=== PATIENT | female | born 1995 | race Hispanic/Latino ===

== ENCOUNTER 2018-05-26 17:36 | Emergency (ER) | payer OTHER ==
[2018-05-26 18:35] LABS: Urine Blood NEGATIVE (NEG); Urine Glucose NEGATIVE (NEG); Urine Protein NEGATIVE (NEG)
[2018-05-26 18:46] LABS: Absolute Lymphocytes (CBC) 1.6 K/uL (0.7-4.9); Absolute Monocytes 0.6 K/uL (0.1-1.3); Absolute Neutrophil 9.3 K/uL (1.8-8.0); Basophils % 0.4 % (0-1.3); Eosinophils % 0.5 % (0-4.4); Hematocrit 39.6 % (36.0-45.0); Lymphocytes % 14.1 % (15.3-44.8); MCH 32.1 pg (27.0-35.0); MCV 93.7 fL (80-100); MPV 9.7 fL (7.6-11.3); Monocytes % 5.1 % (3.3-12.3); RBC Red Blood Cell Count 4.23 M/uL (3.86-4.86)
[2018-05-26 19:19] LABS: BUN Blood Urea Nitrogen 8 mg/dL (7-18); Bicarbonate 25 mmol/L (21-32); Glucose Level 93 mg/dL (74-106); HCG, Quantitative 76865 mIU/mL (1-3); Potassium 3.9 mmol/L (3.5-5.1); Sodium Level 138 mmol/L (136-145)
--- NOTE | 2018-05-26 19:34 | RAD REPORT ---
EXAM DESCRIPTION: US - Transvaginal OB - 05/26/2018 7:27 pm CLINICAL HISTORY: , vaginal bleeding COMPARISON: None. FINDINGS: Single intrauterine gestation is identified. Bieber-rump length measurement corresponds to a 10 week 3 day age. Heart rate is 167 BPM. Yolk sac is still visible. No intrauterine mass or hemato ma identifiable. Both ovaries are identifiable. No dominant solid or cystic ovarian or adnexal finding. Doppler evalua tion shows a normal blood flow within the ovarian stroma. No adnexal mass to suspect ectopic pregnanc y. No blood or fluid in the cul-de-sac. IMPRESSION: Single 10 week 3 day IUP with normal heart rate. No intrauterine mass or hematoma. No suspicious ovarian or adnexal finding.
--- NOTE | 2018-05-26 19:41 | ER ---
Nurse's Notes [facility] Name: Ryann Denney Age: 23 yrs Sex: Female : 1995 Arrival Date: 05/26/2018 Time: 17:42 Bed 25 Private MD: Zane Post Diagnosis: Threatened Presentation: 05/26 17:53 Presenting complaint: Patient states: " I took a test over a month ago and it ph was positive, I went to the OB 2 about 2 weeks ago and they did an US and said that the uterus was empty. I took another test the other day and it was positive too, and I'm still having symptoms like I'm ." Pt reports nausea and bloating, also reports light vaginal bleeding this morning. Transition of care: patient was not received from another setting of care. Onset of symptoms was May 26, 2018. Risk Assessment: Do you want to hurt yourself or someone else? Patient reports no desire to harm self or others. Initial Sepsis Screen: Does the patient meet any 2 criteria? No. Patient's initial sepsis screen is negative. Does the patient have a suspected source of infection? No. Patient's initial sepsis screen is negative. Care prior to arrival: None. 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 - Social history:: Smoking status: Patient/guardian denies using tobacco. - Ebola Screening: : Patient negative for fever greater than or equal to 101.5 degrees Fahrenheit, and additional compatible Ebola Virus Disease symptoms Patient denies exposure to infectious person Patient denies travel to an Ebola-affected area in the 21 days before illness onset. Screenin:40 Abuse screen: Denies threats or abuse. Denies injuries from another. Nutritional aj1 screening: No deficits noted. Tuberculosis screening: No symptoms or risk factors identified. 20:51 Fall Risk None identified. rv Assessment: 18:40 General: Appears in no apparent distress. comfortable, Behavior is calm, cooperative, aj1 appropriate for age. Pain: Complains of pain in suprapubic area Pain does not radiate. Quality of pain is described as crampy. Neuro: Level of Consciousness is awake, alert, obeys commands. Cardiovascular: Patient's skin is warm and dry. Respiratory: Airway is patent Respiratory effort is even, unlabored, Respiratory pattern is regular, symmetrical. GI: No signs and/or symptoms were reported involving the gastrointestinal system. : Urine is clear, Reports vaginal bleeding that is light flow. EENT: No signs and/or symptoms were reported regarding the EENT system. Derm: No signs and/or symptoms reported regarding the dermatologic system. Skin is pink, warm \\T\\ dry. normal. Musculoskeletal: No signs and/or symptoms reported regarding the musculoskeletal system. Circulation, motion, and sensation intact. 19:04 Reassessment: Patient transported to US via wheelchair. aj1 Vital Signs: 17:56 BP 129 / 89; Pulse 77; Resp 18; Temp 98.4; Pulse Ox 97% on R/A; Weight 71.67 kg; Height ph 5 ft. 6 in. (167.64 cm); Pain 2/10; 17:56 Body Mass Index 25.50 (71.67 kg, 167.64 cm) ph ED Course: 17:42 Patient arrived in ED. mr 17:42 Zane Post MD is Private Physician. mr 17:56 Triage completed. ph 17:58 Arm band placed on. ph 18:00 Guy Todd PA is PHCP. jr8 18:00 Isaac Granda MD is Attending Physician. jr8 18:11 Angella Lange, NICOLA is Primary Nurse. aj1 18:40 Patient has correct armband on for positive identification. Bed in low position. Call aj1 light in reach. Side rails up X 1. 18:40 No provider procedures requiring assistance completed. Initial lab(s) drawn, by me, aj1 sent to lab. Inserted saline lock: 22 gauge in right antecubital area, using aseptic technique. Blood collected. 19:30 US Transvaginal Ob In Process Unspecified. EDMS 20:51 IV discontinued, bleeding controlled, No redness/swelling at site. Pressure dressing rv applied. Administered Medications: No medications were administered Outcome: 19:41 Discharge ordered by MD. quintero 20:50 Discharged to home ambulatory. rv 20:50 Condition: good 20:50 Discharge instructions given to patient, Instructed on discharge instructions, follow up and referral plans. Demonstrated understanding of instructions, follow-up care. 20:51 Patient left the ED. rv Signatures: Dispatcher [employer] EDAngella Alcala RN RN aj1 Cathy Cruz mr Guy Todd PA PA jr8 Taylor Waddell RN RN Raúl Negron RN RN rv
--- NOTE | 2018-05-26 19:41 | EDPHYS ---
Physician Documentation [facility] Name: Ryann Denney Age: 23 yrs Sex: Female : 1995 Arrival Date: 05/26/2018 Time: 17:42 Bed 25 Private MD: Zane Post ED Physician Isaac Granda HPI: 05/26 19:29 This 23 yrs old Female presents to ER via Ambulatory with complaints of jr8 Vaginal Bleeding. 19:29 The patient presents with vaginal bleeding that is spotting. Onset: The jr8 symptoms/episode began/occurred acutely. Modifying factors: The symptoms are alleviated by nothing, the symptoms are aggravated by nothing. Associated signs and symptoms: Pertinent positives: cramping. Severity of symptoms: At their worst the symptoms were mild, in the emergency department the symptoms are unchanged. The patient has experienced a previous episode. The patient has not recently seen a physician. Patient stated that by her last LMP she is approximately 11 weeks . Stated that she had spotting a few weeks ago and did not see intrauterine gestation via US at that time. Spotting again with cramping. Came back for second evaluation. Had positive test at home. 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 - Social history:: Smoking status: Patient/guardian denies using tobacco. - Ebola Screening: : Patient negative for fever greater than or equal to 101.5 degrees Fahrenheit, and additional compatible Ebola Virus Disease symptoms Patient denies exposure to infectious person Patient denies travel to an Ebola-affected area in the 21 days before illness onset. ROS: 19:29 Eyes: Negative for injury, pain, redness, and discharge, ENT: Negative for injury, jr8 pain, and discharge, Neck: Negative for injury, pain, and swelling, Cardiovascular: Negative for chest pain, palpitations, and edema, Respiratory: Negative for shortness of breath, cough, wheezing, and pleuritic chest pain, Abdomen/GI: Negative for abdominal pain, nausea, vomiting, diarrhea, and constipation, Back: Negative for injury and pain, MS/Extremity: Negative for injury and deformity, Skin: Negative for injury, rash, and discoloration, Neuro: Negative for headache, weakness, numbness, tingling, and seizure. 19:29 : Positive for pelvic pain, vaginal bleeding. Exam: 19:29 Eyes: Pupils equal round and reactive to light, extra-ocular motions intact. Lids and jr8 lashes normal. Conjunctiva and sclera are non-icteric and not injected. Cornea within normal limits. Periorbital areas with no swelling, redness, or edema. ENT: Nares patent. No nasal discharge, no septal abnormalities noted. Tympanic membranes are normal and external auditory canals are clear. Oropharynx with no redness, swelling, or masses, exudates, or evidence of obstruction, uvula midline. Mucous membranes moist. Neck: Trachea midline, no thyromegaly or masses palpated, and no cervical lymphadenopathy. Supple, full range of motion without nuchal rigidity, or vertebral point tenderness. No Meningismus. Cardiovascular: Regular rate and rhythm with a normal S1 and S2. No gallops, murmurs, or rubs. Normal PMI, no JVD. No pulse deficits. Respiratory: Lungs have equal breath sounds bilaterally, clear to auscultation and percussion. No rales, rhonchi or wheezes noted. No increased work of breathing, no retractions or nasal flaring. Abdomen/GI: Soft, non-tender, with normal bowel sounds. No distension or tympany. No guarding or rebound. No evidence of tenderness throughout. Back: No spinal tenderness. No costovertebral tenderness. Full range of motion. Skin: Warm, dry with normal turgor. Normal color with no rashes, no lesions, and no evidence of cellulitis. MS/ Extremity: Pulses equal, no cyanosis. Neurovascular intact. Full, normal range of motion. Neuro: Awake and alert, GCS 15, oriented to person, place, time, and situation. Cranial nerves II-XII grossly intact. Motor strength 5/5 in all extremities. Sensory grossly intact. Cerebellar exam normal. Normal gait. Vital Signs: 17:56 BP 129 / 89; Pulse 77; Resp 18; Temp 98.4; Pulse Ox 97% on R/A; Weight 71.67 kg; Height ph 5 ft. 6 in. (167.64 cm); Pain 2/10; 17:56 Body Mass Index 25.50 (71.67 kg, 167.64 cm) ph MDM: 18:01 Patient medically screened. 19:29 Data reviewed: vital signs, nurses notes, lab test result(s), radiologic studies, 8 ultrasound, and as a result, I will discharge patient. Data interpreted: Pulse oximetry: on room air is 97 %. Interpretation: normal. Counseling: I had a detailed discussion with the patient and/or guardian regarding: the historical points, exam findings, and any diagnostic results supporting the discharge/admit diagnosis, lab results, radiology results, the need for outpatient follow up, an OB/Gyne specialist, to return to the emergency department if symptoms worsen or persist or if there are any questions or concerns that arise at home. 05/26 18:18 Order name: CBC with Diff; Complete Time: 19:20 [email or web address] 05/26 18:18 Order name: Basic Metabolic Panel; Complete Time: 19:20 05/26 18:18 Order name: HCG-Quantitative; Complete Time: 19:20 [email or web address] 05/26 18:27 Order name: Urine Dipstick--Ancillary (enter results); Complete Time: 18:53 05/26 18:27 Order name: Urine --Ancillary (enter results); Complete Time: 18:53 05/26 19:34 Order name: Abo/rh Typing; Complete Time: 20:41 [email or web address] 05/26 18:18 Order name: IV; Complete Time: 19:00 [email or web address] 05/26 18:18 Order name: Urine Test (obtain specimen); Complete Time: 19:00 [email or web address] 05/26 18:18 Order name: Urine Dipstick-Ancillary (obtain specimen); Complete Time: 19:00 [email or web address] 05/26 18:53 Order name: US Transvaginal Ob; Complete Time: 19:40 Administered Medications: No medications were administered Disposition: 19:29 Chart complete. Chart complete. 05/27 07:17 Co-signature as Attending Physician, Isaac Granda MD I agree with the assessment and fadi plan of care. Disposition: 05/26/18 19:41 Discharged to Home. Impression: Threatened . - Condition is Stable. - Discharge Instructions: Threatened Miscarriage, Vaginal Bleeding During , First Trimester, Pelvic Rest. - Medication Reconciliation Form, Thank You Letter, Antibiotic Education, Prescription Opioid Use form. - Follow up: Private Physician; When: 2 - 3 days; Reason: Recheck today's complaints, Continuance of care, Re-evaluation by your physician. - Problem is new. - Symptoms have improved. Signatures: Dispatcher [employer] EDAngella Alcala RN RN aj1 Isaac Granda MD MD cha Roszak, Josh, PA PA jr8 Taylor Waddell RN RN Raúl Reed RN RN rv Corrections: (The following items were deleted from the chart) 05/26 20:51 19:41 05/26/2018 19:41 Discharged to Home. Impression: Threatened . Condition rv is Stable. Forms are Medication Reconciliation Form, Thank You Letter, Antibiotic Education, Prescription Opioid Use. Follow up: Private Physician; When: 2 - 3 days; Reason: Recheck today's complaints, Continuance of care, Re-evaluation by your physician. Problem is new. Symptoms have improved. jr8
[2018-05-26 22:45] VITALS: BP 129/89; TEMP 98.4; O2SAT 97
== END 2018-05-26 20:51 | disposition home or self-care (01) ==
LOC: ER 17:36
DX: O20.0 Threatened abortion (principal); Z3A.11 11 weeks gestation of pregnancy
CPT/HCPCS: 36415; 76817; 80048; 81003; 81025; 84702; 85025; 86900; 86901; 99283

== ENCOUNTER 2018-12-11 05:08 | Inpatient (IN) | payer OTHER ==
[2018-12-10 17:38] LABS: RPR Titer ND
[2018-12-10 17:43] LABS: Urine Appearance CLEAR; Urine Bilirubin NEGATIVE (NEG); Urine Blood NEGATIVE (NEG); Urine Color YELLOW; Urine Glucose NEGATIVE (NEG); Urine Protein NEGATIVE (NEG); Urine Specific Gravity 1.015 (1.005-1.030); Urine Urobilinogen 0.2 mg/dL (0.2-1.0)
[2018-12-10 17:47] LABS: Absolute Lymphocytes (CBC) 1.7 K/uL (0.7-4.9); Absolute Monocytes 0.7 K/uL (0.1-1.3); Absolute Neutrophil 6.4 K/uL (1.8-8.0); Basophils % 0.3 % (0-1.3); Eosinophils % 0.4 % (0-4.4); Hematocrit 35.4 % (36.0-45.0); Lymphocytes % 19.3 % (15.3-44.8); MPV 10.4 fL (7.6-11.3); Monocytes % 7.5 % (3.3-12.3); RBC Red Blood Cell Count 4.11 M/uL (3.86-4.86)
[2018-12-10 17:53] LABS: Protime INR 0.89
[2018-12-10 18:40] LABS: Urine Bacteria NONE SEEN /HPF (<20); Urine RBC <5 /HPF (NONE SEEN)
[2018-12-10 18:41] LABS: Urine Culture Reflex Order NOT NEEDED
[2018-12-10 21:58] LABS: RPR (Rapid Plasma Reagin) NON-REACT (NON-REACT)
[2018-12-11] MEDS ORDERED: Ringers Lactate 1,000 ML IV PRN (05:11)
[2018-12-11] MEDS ORDERED: NA CIT/CITRIC AC 30 ML ORAL UDC PO ONE (05:13)
[2018-12-11] MEDS ORDERED: FAMOTIDINE 20 MG/2 ML VIAL IV ONE (05:13)
[2018-12-11 05:52] VITALS: BMI 31.8
[2018-12-11] MEDS ORDERED: METOCLOPRAMIDE 10 MG/2mL INJ IV SCH (06:00)
[2018-12-11] MEDS ORDERED: CEFAZOLIN 2 GM in NA CHLORIDE 0.9% 100 ML IVPB SCH (06:00)
[2018-12-11] MEDS ORDERED: Ringers Lactate 1,000 ML IV SCH (06:00)
[2018-12-11] MEDS ORDERED: METHYLERGONOVINE 0.2MG/ML AMP IM ONE (06:18)
[2018-12-11] MEDS ORDERED: CARBOPROST TROME 250 MCG/ML IM ONE (06:18)
[2018-12-11] MEDS ORDERED: CEFAZOLIN/SWI 2gm 2 GM/20 ML SYR ONE (06:53)
[2018-12-11] MEDS ORDERED: EPHEDRINE SULF 50 MG/ML VIAL ONE (07:20)
[2018-12-11] MEDS ORDERED: MORPHINE SULFATE/PF 1 MG/ML (10 ML AMP) ONE (07:20)
[2018-12-11] MEDS ORDERED: OXYTOCIN 10 UNIT/ML ML IV ONE ×3 (07:21→08:01)
[2018-12-11] MEDS ORDERED: GLYCOPYRROLATE 0.2 MG/ML SYR ONE (07:21)
[2018-12-11] MEDS ORDERED: NS 0.9% VIAL 10 ML ONE (07:21)
[2018-12-11] MEDS ORDERED: ONDANSETRON 4 MG/2 ML VIAL ONE (07:23)
[2018-12-11] MEDS ORDERED: Phenylephrine HCl 10 MG/ML 1 ML VIAL ONE (07:23)
[2018-12-11] MEDS ORDERED: MIDAZOLAM HCL 2 MG/2 ML INJ ONE (07:55)
[2018-12-11] MEDS ORDERED: INFLUENZA VACCINE (for 3y+) 0.5 ML DOSE IMVAC ONE (08:00)
--- NOTE | 2018-12-11 08:28 | PREOPHP ---
Date of Admission: 12/11/2018 This is a 23-year-old 4, para 1, 1 miscarriage, 1 now at 39 weeks. for r epeat section. Possible tubal ligation. Infection, blood loss, anesthetic complications, i njury to bladder, bowel, ureter, postoperative complications, clots in legs, pneumonia discussed. Th e patient knows fully well this does not constitute all possible problems that could occur during or following surgery. Knows that if we do perform the tubal, she still has a chance of getting approximately . Difficulty in tubal reversal, tubal ectopic , also discussed. Family History: Shows paternal grandfather with hypertension. Also heart attacks, also diabetes. N o other significant family history. Past Surgical History: The patient has had a , broken arms, tonsils removed. Finger tip am putation, Chlamydia in 2017 was treated. Allergies: NO ALLERGIES. Medicines Prior To Admission: vitamins and iron. Social History: Does not smoke. Physical Examination: HEENT: Clear. Pupils equal, round, and reactive to light and accommodation. Conjunctivae well perf used. No oral, lingual, or buccal lesions. Chest: Clear. Lungs: Clear. Heart: Without murmurs, thrills, heaves, or rubs. Abdomen: Baby is vertex. Term size is in the 8 pounds range or better. Extremities: Clear without edema, cyanosis, or clubbing. : She is 1 to 1.5 cm, 50% effaced, vertex, well applied. Assessment/plan: We will proceed with repeat section, possible tubal ligation depending upo n lower uterine segment. The patient knows that I cannot guarantee that I can perform the procedure in which case we will talk about options that would occur of course in period. SIGIFREDO/CHALINO Voice ID: [id number]
[2018-12-11] MEDS ORDERED: ACETAMINOPHEN 500 MG TAB PO PRN ×2 (08:30)
[2018-12-11] MEDS ORDERED: KETOROLAC 30 MG/ML INJ IM PRN (08:30)
[2018-12-11] MEDS ORDERED: ONDANSETRON 4 MG (ODT) TAB PO PRN (08:30)
[2018-12-11] MEDS ORDERED: ONDANSETRON 4 MG/2 ML VIAL IV PRN (08:30)
[2018-12-11] MEDS ORDERED: BISACODYL 10 MG RECTAL SUPP RECT PRN (08:30)
[2018-12-11] MEDS ORDERED: CEFAZOLIN/SWI 1gm 1 GM/10 ML SYR IV SCH (08:30)
[2018-12-11] MEDS ORDERED: Oxycodone HCl/Acetaminophen 1 TAB TAB PO PRN (08:30)
[2018-12-11] MEDS ORDERED: KETOROLAC 30 MG/ML INJ IV PRN (08:30)
[2018-12-11] MEDS ORDERED: OXYTOCIN/LR 20 UNIT/1,000 ML BAG IV SCH (09:00)
[2018-12-11] MEDS ORDERED: D5LR 1,000 ML with OXYTOCIN 20 UNIT IV SCH ×2 (09:00)
[2018-12-11] MEDS: DIPHENHYDRAMINE 25 MG TAB/CAP PO PRN ×3 (09:48→22:06)
[2018-12-11] MEDS ORDERED: Ringers Lactate 3,000 ML IV ONE (13:20)
--- NOTE | 2018-12-11 15:40 | OP ---
Surgeon: Stone Hanson MD Indications: This is a 23-year-old female with repeat section. Infection, blood loss, anes thetic complications, injury to bladder, bowel, or ureter, all discussed with the patient prior to ad mission. This is her fourth . She has had 1 termination and 1 miscarriage. The patient is also requesting tubal sterilization. We discussed with her that if the lower uterine segment would withstand, we could proceed on with the tubal and she has signed the permit. Description Of Procedure: After prepping and draping, time-out was performed. Pfannenstiel incision was created. The incision was carried to the fascia. The fascia was incised and incision carried t ransversely bilaterally. Anterior fascia plane was developed with both blunt and sharp dissection. The underlying rectus muscle was . There was noted to be significant anterior scarring with thick adhesions that required lysis before the lower uterine segment could be exposed. The lower ut erine segment was very thin. I decided to go above the lower uterine segment as when we removed the adhesions, there was raw surfaces on the uterus, and I decided to go a little bit higher than I mario lly would have to include the raw surfaces, so we conclude that in our suturing later. Low transvers e uterine incision was created. A 9-pound 5-ounce boy was delivered. Kiwi suction was necessary to elevate the head. Loose nuchal cord x1. Apgars 9 at 1 minute. Cord blood was obtained. The placen ta was removed manually, and the uterus was exteriorized. Significant hypotonus was encountered. A 0.2 mg of Methergine IM, as well as 10 units of Pitocin into the myometrium were administered, as wel l as IV drip Pitocin. Estimated blood loss during the procedure [id number] cc. After cervical os was dilated, uterus was closed with a running locked stitch of 1 chromic followed by imbricating stitch of 1 chromic. Multiple raw surfaces where the adhesions had been encountered were fulgurated. Bilat eral tubal ligation was performed, both tubes being kinked in the midportion, triply tied with 3-0 pl ain and the segment of tube was removed. The tubal lumen, which were exposed, were fulgurated. Furt her examination of the suture line showed no further bleeding. The gutters clear of clot and blood. Uterus was replaced in the peritoneal cavity. Ligation sites were checked, noted to be intact witho ut bleeding. The anterior surface of the uterus again very raw and irritated, but no further bleedin g. Muscles were closed with 0 Vicryl interrupted sutures x3. Fascia was closed with 1 Vicryl runnin g from either angle to the midline. Subcutaneous tissue closed with 3-0 plain. Absorbable mayco p laced and then metal mayco. The patient had been given 2 g of Ancef. Tolerated all procedures wel l. Transferred back to her room in good condition. Final Diagnoses: Term intrauterine . Repeat section. Spinal block anesthesia. T ubal ligations. Severe anterior scarring. Thin lower uterine segment. Moderate uterine hypotonus. SIGIFREDO/CHALINO Voice ID: [id number] Report ID: [id number]
[2018-12-12] MEDS: Oxycodone HCl/Acetaminophen 1 TAB TAB PO PRN ×5 (00:26→23:25)
[2018-12-12] MEDS ORDERED: Ringers Lactate 1,000 ML IV ONE (01:45)
[2018-12-12] MEDS: MAGNESIUM HYDROXIDE 8% 30 ML PO PRN ×2 (08:30→18:23)
[2018-12-13] MEDS: Oxycodone HCl/Acetaminophen 1 TAB TAB PO PRN ×2 (03:18→08:35)
[2018-12-13] MEDS ORDERED: IBUPROFEN 200 MG TAB PO PRN (07:54)
[2018-12-13] MEDS ORDERED: Tdap (Diph,Pertuss(Acell),Tet Vac) 0.5 ML SYR IMVAC ONE (09:00)
--- NOTE | 2018-12-13 09:21 | DS ---
Hospital Course: Ryann Denney underwent repeat section low transverse cervical, spinal b lock anesthesia, tubal sterilization. At the time of surgery, significant anterior scarring was note d that required multiple before the lower uterine segment can be reached, and the lower ut erine segment itself was thin, and therefore, sterilization was performed. Postoperatively, the fouzia ent remains afebrile. She is ambulating, voiding. Lochia is normal. The patient experienced mild-t o-moderate hypotonus at the time of surgery. She is anemic at this point and knows she needs to cont inue vitamins and iron. Tdap has again been discussed as it has been several times during t he and suggested. She has requested Motrin for analgesia 800 mg 1 every 8 hours as needed. GI precautions given. She is to return to my office late this coming week for staple removal. To report any temperature elevation of 100 degrees or greater, severe pain, heavy bleeding, or any other type of abnormalities. No post spinal block problems. Final Diagnoses: Term intrauterine , repeat section, moderate uterine hypotonus, s evere anterior scarring, thin lower uterine segment, section, tubal sterilization performed. SIGIFREDO/CHALINO Voice ID: [id number] Report ID: [id number]
[2018-12-13 10:13] VITALS: BP 120/64; TEMP 99.1
--- NOTE | 2018-12-14 08:28 | PN ---
The patient has no complaints or problems this morning. Output is good. Vital signs are all stable. We will discontinue Messina and IV. Full postop talk given. She will call the office on Friday, amita carlson an appointment to come see me late next week. She knows that her blood count is slightly lower jorden n average at this point because of the uterine hypertonicity. This is fully discussed and the patimiguel rodriguez is encouraged to get on iron when she leaves the hospital for the next month or 2. She is having s ome pruritus, but otherwise no problems or complaints reported. If she continues progressing well, ying carlson will send her home tomorrow. Full discharge instructions given but we will go over those again nacho orrow. No post spinal block problems. SIGIFREDO/CHALINO Voice ID: [id number] Report ID: [id number]
[2018-12-16 04:37] LABS: HBsAG Nonreactive (Nonreactive)
== END 2018-12-13 12:10 | disposition home or self-care (01) | DRG 785 ==
LOC: 2ND-WC 05:08
PROVIDERS: ADMIT Specialist; ATTEND Specialist
PROC: 0U570ZZ Destruction of Bilateral Fallopian Tubes, Open Approach (ICD-10-PCS; 2018-12-11)
PROC: 10D00Z1 Extraction of Products of Conception, Low, Open Approach (ICD-10-PCS; principal; 2018-12-11 07:30)
DX: O34.211 Maternal care for low transverse scar from previous cesarean delivery (principal); N85.8 Other specified noninflammatory disorders of uterus; O69.81X0 Labor and delivery complicated by cord around neck, without compression, not applicable or unspecified; O34.29 Maternal care due to uterine scar from other previous surgery; O62.2 Other uterine inertia; Z3A.39 39 weeks gestation of pregnancy; Z37.0 Single live birth; Z23 Encounter for immunization
CPT/HCPCS: 36415; 81001; 85014; 85025; 85610; 85730; 86592; 86850; 86900; 86901; 87340; 88302; 88307; 90715; J0690; J2210; J2250; J2370; J2405; J2590; J2765

== ENCOUNTER 2019-12-24 20:30 | Emergency (ER) | payer OTHER ==
--- NOTE | 2019-12-24 21:00 | ER ---
Nurse's Notes [facility] Name: Ryann Denney Age: 24 yrs Sex: Female : 1995 Arrival Date: 12/24/2019 Time: 20:36 Bed 8 Private MD: Zane Post Diagnosis: Nasal Contusion Presentation: 12/23 20:42 Chief complaint: Patient states: Son head butted nose 2 weeks ago and again tonight. ca1 Obvious deformity noted. Denies difficulty breathing. Coronavirus screen: Patient denies fever greater than 100.4F, cough, shortness of breath, or difficulty breathing. Proceed with normal triage process. Ebola Screen: Patient negative for fever greater than or equal to 101.5 degrees Fahrenheit, and additional compatible Ebola Virus Disease symptoms Patient denies exposure to infectious person. Patient denies travel to an Ebola-affected area in the 21 days before illness onset. No symptoms or risks identified at this time. Initial Sepsis Screen: Does the patient meet any 2 criteria? No. Patient's initial sepsis screen is negative. Does the patient have a suspected source of infection? No. Patient's initial sepsis screen is negative. Risk Assessment: Do you want to hurt yourself or someone else? Patient reports no desire to harm self or others. Onset of symptoms was December 24, 2019. 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 - Social history:: Smoking status: Patient denies any tobacco usage or history of. Vital Signs: 20:42 BP 114 / 95; Pulse 106; Resp 17 S; Temp 97.6(TE); Pulse Ox 100% on R/A; Weight 73.03 ca1 kg; Height 5 ft. 7 in. (170.18 cm) (R); 20:42 Body Mass Index 25.22 (73.03 kg, 170.18 cm) ca1 ED Course: 20:36 Patient arrived in ED. mr 20:36 Zane Post MD is Private Physician. mr 20:39 [facility] 20:39 Isaac Granda MD is Attending Physician. [facility] 20:44 Triage completed. ca1 20:45 Arm band placed on right wrist. ca1 20:59 Noemí Horton MD is Referral Physician. [facility] 21:04 Mt Godinez, RN is Primary Nurse. sg Administered Medications: No medications were administered Outcome: :59 Discharge ordered by . [facility] 21:04 Patient left the ED. sg Signatures: Mt Godinez, RN RN Evan Mathew PA PA [facility] Anthony Marisol mr Charlee Rojo RN RN ca1
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
[2019-12-24 21:08] VITALS: BP 114/95; TEMP 97.6; O2SAT 100
== END 2019-12-24 21:04 | disposition home or self-care (01) ==
LOC: ER 20:30
DX: S00.33XA Contusion of nose, initial encounter (principal); X58.XXXA Exposure to other specified factors, initial encounter
CPT/HCPCS: 99281

== ENCOUNTER 2022-11-23 14:11 | Emergency (ER) | payer OTHER ==
--- OUTSIDE RECORDS SUMMARY | 2022-11-23 14:14 | XMS REPORT | Continuity of Care Document ---
:1995 Author Organization [facility] t Address [address] [place] [address] Care Team Providers Name Role Phone PATI WILLIAMSON Primary Care Physician Unavailable PATI WILLIAMSON Attending Clinician Unavailable Payers Payer Name Policy Type Policy Number Effective Date Expiration Date S jamari [id number] 2021 00:00:00 Problems This patient has no known problems. Allergies, Adverse Reactions, Alerts Allergy Allergy Status Severity Reaction(s) Onset Inactive Treating Comm ents Source Name Type Date Date Clinician NO KNOWN Drug Active [facility] ALLERGIE Class [facility] of [facility] Medications This patient has no known medications. Procedures This patient has no known procedures. Encounters Start End Encounter Admission Attending Care Care Encounter Source Date/Time Date/Time Type Type Clinicians Facility Department ID 2022-10-15 2022-10-15 Outpatient R [facility] [id number] [facility] 09:15:00 09:15:00 PATI luu o f [facility] Results This patient has no known results.
[2022-11-23] MEDS ORDERED: KETOROLAC 30 MG/ML INJ ONE (15:40)
--- NOTE | 2022-11-23 16:23 | RAD REPORT ---
EXAM DESCRIPTION: Shoulder Right 2 View - 11/23/2022 3:54 pm CLINICAL HISTORY: Pain COMPARISON: None. TECHNIQUE: Internal and external rotation views of the right shoulder were obtained. FINDINGS: There is no fracture or dislocation. AC joint is normal in appearance. No acute or suspici ous findings. IMPRESSION: No acute osseous abnormality of the right shoulder.
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
[2022-11-23 16:52] VITALS: TEMP 98.6; O2SAT 100
[2022-11-23 16:54] VITALS: BP 124/78
== END 2022-11-23 16:45 | disposition home or self-care (01) ==
LOC: ER 14:11
DX: M79.631 Pain in right forearm (principal); R29.91 Unspecified symptoms and signs involving the musculoskeletal system; M25.511 Pain in right shoulder; Z98.82 Breast implant status
CPT/HCPCS: 96372; 99283

== ENCOUNTER 2024-03-14 13:25 | Emergency (ER) | payer OTHER, SELFPAY ==
--- OUTSIDE RECORDS SUMMARY | 2024-03-14 13:35 | XMS REPORT | Continuity of Care Document ---
Author Name Unknown Address [address] [place] [address] [facility] thconnect Address [address] [place] [address] Care Team Providers [place] Name Role Phone PATI WILLIAMSON Primary Care Physician Unav ailable [email or web address]_S Attending Clinician Unavaila ble PATI WILLIAMSON Attending Clinician Unavail able [email or web address]_S Admitting Clinician Unavaila ble Payers Payer Name Policy Type Policy Number Effective Date Expirati on Date Source [facility] [id number] [facility] [id number] 2021 00:00:00 Allergies, Adverse Reactions, Alerts Allergy Name Allergy Type Status Severity Reaction(s) Onset Date Inactive Date Treating Clinician Comments Source NO KNOWN ALLERGIE S Drug Class Active Univers [facility] Encounters Start Date/Time End Date/Time Encounter Type Admission Type Attending Clinicians Care Facility Care Department Encounter ID Source 2023-12-31 00:00:00 2023-12-31 00:00:00 Outpatient [email or web address] [email or web address] PRIV PRIV [id number] [facility] 2023-12-30 00:00:00 2023-12-30 00:00:00 Outpatient [email or web address] [email or web address]_S PRIV PRIV [id number] [facility] 2023-12-18 00:00:00 2023-12-18 00:00:00 Outpatient [email or web address] [email or web address]_S PRIV PRIV [id number] [facility] 2022-10-15 09:15:00 2022-10-15 09:15:00 Outpatient PATI [facility] [id number] [facility]
[2024-03-14] MEDS ORDERED: KETOROLAC 30 MG/ML INJ ONE (14:05)
[2024-03-14] MEDS ORDERED: DICYCLOMINE HCL 10 MG CAP ONE (14:05)
[2024-03-14 14:14] LABS: Absolute Eosinophils 0.1 K/uL (0-0.5); Absolute Lymphocytes (CBC) 1.8 K/uL (0.7-4.9); Absolute Monocytes 0.8 K/uL (0.1-1.3); Absolute Neutrophil 7.3 K/uL (1.8-8.0); Basophils % 0.4 % (0-1.3); Eosinophils % 0.9 % (0-4.4); Hematocrit 34.7 % (36.0-45.0); Hemoglobin 11.4 g/dL (12.0-15.0); Lymphocytes % 17.9 % (15.3-44.8); MCH 30.5 pg (27.0-35.0); MCHC 32.9 g/dL (32.0-36.0); MCV 92.8 fL (80-100); MPV 9.4 fL (7.6-11.3); Monocytes % 7.6 % (3.3-12.3); Neutrophils % 73.2 % (41.7-73.7); Platelets 226 thou/uL (152-406); RBC Red Blood Cell Count 3.74 M/uL (3.86-4.86); Red Cell Distribution Width 13.8 % (12.1-15.2)
[2024-03-14 14:18] LABS: Specific Gravity 1.029 (1.005-1.030); Sqamous Epithelial <5 /HPF (None Seen); Urine Bacteria None Seen /HPF (<20); Urine Bilirubin NEGATIVE (Negative); Urine Blood Negative (Negative); Urine Clarity Clear (Clear); Urine Color Yellow (Yellow); Urine Culture Reflex Order NOT NEEDED; Urine Glucose NEGATIVE (Negative); Urine Ketones NEGATIVE (Negative); Urine Microscopic Reflex YN ORDER UMIC; Urine Mucus 1+ /HPF (None Seen); Urine Nitrite NEGATIVE (Negative); Urine Protein TRACE (Negative); Urine RBC <5 /HPF (None Seen); Urine Urobilinogen Normal (Normal); Urine WBC <5 /HPF (<5)
[2024-03-14 14:26] LABS: Specific Gravity 1.028 (1.005-1.030)
[2024-03-14 15:13] LABS: ALT/SGPT 17 U/L (13-56); Albumin 3.1 g/dL (3.4-5.0); Albumin/Globulin Ratio 0.8 (1.1-1.8); Anion Gap 6.7 mEq/L (5.0-15.0); BUN Blood Urea Nitrogen 10 mg/dL (7-18); Bicarbonate 29 mEq/L (21-32); Bilirubin Total 0.2 mg/dL (0.2-1.0); Globulin 3.9 g/dL (2.3-3.5); Glomerular Filtration Rate 126 ml/min (=/>90); Glucose Level 90 mg/dL (74-106); Lipase 25 U/L (13-75); Potassium 3.7 mEq/L (3.5-5.1); Sodium Level 137 mEq/L (136-145)
[2024-03-14 15:14] LABS: Alkaline Phosphatase 72 U/L (45-117)
[2024-03-14 15:19] LABS: AST/SGOT < 10 U/L (15-37)
--- NOTE | 2024-03-14 15:55 | RAD REPORT ---
EXAM DESCRIPTION: CTAbdomen Pelvis W Contrast - 03/14/2024 3:39 pm CLINICAL HISTORY: ABD PAIN COMPARISON: No comparisons TECHNIQUE: CT of the abdomen and pelvis was performed. All CT scans are performed using dose optimization technique as appropriate and may include automated exposure control or mA/KV adjustment according to patient size. FINDINGS: Lower chest: No acute abnormality. Bilateral breast prostheses . Liver: No acute abnormality or suspicious lesions. Biliary: No biliary ductal dilatation. Stomach: No significant focal abnormality. Duodenum: No significant focal abnormality. Pancreas: No significant abnormality. Spleen: No significant abnormality. Adrenal: No suspicious lesions. Kidney/ureter: No hydronephrosis. No renal calculi. Subcentimeter right lower pole renal lesion which is most consistent with a renal cyst. Retroperitoneum: No retroperitoneal adenopathy. Vascular: No aneurysm. Bowel: No appendicitis.. No bowel obstruction. Long segment mild small bowel wall thickening and mese nteric edema at the ileum. Peritoneum: Pelvic free fluid is present. Small fat containing periumbilical hernia. Bladder: Grossly unremarkable. Reproductive: No adnexal masses. Bones: No acute fracture. Other: n/a IMPRESSION: Possible mild enteritis. No bowel obstruction. No appendicitis. No other acute findings identified. Pelvic free fluid is likely physiologic.
--- NOTE | 2024-03-14 16:17 | EDPHYS ---
Physician Documentation [facility] Name: Ryann Winslow Age: 28 yrs Sex: Female : 1995 Arrival Date: 03/14/2024 Time: 13:25 Bed 14 Private MD: ED Physician Lucho Clinton HPI: 03/14 14:04 This 28 yrs old Female presents to ER via Ambulatory with complaints of rt Abdominal Pain. 14:04 Patient presents to the ED with an intermittent abdominal pain, reported bloating for rt the past 5 days. Patient states the pain became constant today. Moderate in severity, no other aggravating or alleviating factors. Patient show gets relief with Advil, but does not last. Denies nausea, vomiting, urinary symptoms. LMP was 2 weeks ago. Denies other acute complaints, symptoms are. Historical: - Allergies: 13:28 No Known Allergies; ll1 - Home Meds: 13:31 alprazolam 0.5 mg Oral tablet [Active]; venlafaxine 50 mg oral tablet [Active]; ll1 - PMHx: 13:31 None; ll1 - PSHx: 13:28 breast augmentation; section; Tummy tuck; ll1 - Immunization history:: Adult Immunizations up to date. - Infectious Disease History:: Denies. - Social history:: Smoking status: Reported history of juuling and/or vaping. Patient denies any tobacco usage or history of. - Family history:: not pertinent. ROS: 14:04 Constitutional: Negative for fever, chills, and weight loss, Cardiovascular: Negative rt for chest pain, palpitations, and edema, Respiratory: Negative for shortness of breath, cough, wheezing, and pleuritic chest pain, MS/Extremity: Negative for injury and deformity, Skin: Negative for injury, rash, and discoloration, Neuro: Negative for headache, weakness, numbness, tingling, and seizure, 14:04 Abdomen/GI: Positive for abdominal pain, Negative for nausea and vomiting, Exam: 14:04 Constitutional: This is a well developed, well nourished patient who is awake, alert, rt and in no acute distress. Head/Face: Normocephalic, atraumatic. Chest/axilla: Normal chest wall appearance and motion. Nontender with no deformity. No lesions are appreciated. Cardiovascular: Regular rate and rhythm with a normal S1 and S2. No gallops, murmurs, or rubs. Normal PMI, no JVD. No pulse deficits. Respiratory: Lungs have equal breath sounds bilaterally, clear to auscultation and percussion. No rales, rhonchi or wheezes noted. No increased work of breathing, no retractions or nasal flaring. Skin: Warm, dry with normal turgor. Normal color with no rashes, no lesions, and no evidence of cellulitis. MS/ Extremity: Pulses equal, no cyanosis. Neurovascular intact. Full, normal range of motion. 14:04 Abdomen/GI: Mild tenderness to the suprapubic region without rebound, guarding, distention, Vital Signs: 13:32 BP 144 / 90; Pulse 88; Resp 16; Temp 97.4; Pulse Ox 98% ; Weight 81.65 kg; Height 5 ft. ll1 7 in. ; Pain 6/10; 15:08 BP 118 / 77; Pulse 83; Resp 18; Pulse Ox 99% ; db 16:30 BP 120 / 78; Pulse 84; Resp 18; Pulse Ox 99% on R/A; db 13:32 Body Mass Index 28.19 (81.65 kg, 170.18 cm) ll1 13:32 Pain Scale: Adult ll1 MDM: 13:35 Patient medically screened. rt 19:34 Differential Diagnosis Enteritis, appendicitis, ovarian cyst, bowel obstruction. Data rt reviewed: vital signs, nurses notes, lab test result(s), radiologic studies. I considered the following discharge prescriptions or medication management in the emergency department Medications were administered in the Emergency Department. See MAR. Independent interpretation of the following test(s) in the Emergency Department CT Scan: My interpretation is No bowel obstruction seen on interpretation of CT scan images. Test considered but Not performed: Ultrasound Symptoms not consistent with ovarian torsion, ultrasound is not indicated. Counseling: I had a detailed discussion with the patient and/or guardian regarding the historical points, exam findings, and any diagnostic results supporting the discharge/admit diagnosis, lab results, radiology results, the need for outpatient follow up, to return to the emergency department if symptoms worsen or persist or if there are any questions or concerns that arise at home. Response to treatment: the patient's symptoms have mildly improved after treatment. 03/14 13:44 Order name: CBC with Diff; Complete Time: 15:22 rt 03/14 13:44 Order name: CMP; Complete Time: 15:22 rt 03/14 13:44 Order name: Lipase; Complete Time: 15:22 rt 03/14 13:44 Order name: Test, Urine; Complete Time: 15:22 rt 03/14 13:44 Order name: Urinalysis w/ reflexes; Complete Time: 15:22 rt 03/14 13:44 Order name: CT Abd/Pelvis - IV Contrast Only; Complete Time: 15:57 rt 03/14 13:44 Order name: IV Saline Lock; Complete Time: 14:10 rt 03/14 13:44 Order name: Labs collected and sent; Complete Time: 14:10 rt Administered Medications: 14:10 Drug: TORadol - Ketorolac IVP 15 mg IVP once Route: IVP; Site: right antecubital; db 16:49 Follow up: Response: No adverse reaction db 14:10 Drug: Dicyclomine PO 20 mg PO once Route: PO; db 16:49 Follow up: Response: No adverse reaction db Disposition Summary: 03/14/24 16:15 Discharge Ordered Notes: Location: Home rt Problem: new rt Symptoms: are unchanged rt Condition: Stable rt Diagnosis - Abdominal pain, unspecified rt Followup: rt - With: Private Physician - When: 2 - 3 days - Reason: Discharge Instructions: - Discharge Summary Sheet rt - Abdominal Pain, Adult rt Forms: - Medication Reconciliation Form rt - Antibiotic Education rt - Prescription Opioid Use rt - Patient Portal Instructions rt - Leadership Thank You Letter rt Prescriptions: - Tramadol 50 mg Oral Tablet - take 1 tablet ORAL route every 8 hours as needed; 12 tablet; Refills: 0, rt Product Selection Permitted Signatures: Dispatcher [employer] EDMS Ivonne Granado RN RN ll1 Cris Monique RN RN db Lucho Clinton MD MD rt Corrections: (The following items were deleted from the chart) 13:45 13:45 CBC+H.LAB.BRZ ordered. EDMS EDMS 13:45 13:45 COMPREHENSIVE METABOLIC PANEL+C.LAB.BRZ ordered. EDMS EDMS 13:45 13:45 LIPASE+C.LAB.BRZ ordered. EDMS EDMS 13:45 13:45 Test, Urine+UC.LAB.BRZ ordered. EDMS EDMS 13:45 13:45 Urinalysis+U.LAB.BRZ ordered. EDMS EDMS 13:45 13:45 Abdomen Pelvis W Con+CT.RAD.BRZ ordered. EDMS EDMS
--- NOTE | 2024-03-14 16:17 | ER ---
Nurse's Notes [facility] Name: Ryann Winslow Age: 28 yrs Sex: Female : 1995 Arrival Date: 03/14/2024 Time: 13:25 Bed 14 Private MD: Diagnosis: Abdominal pain, unspecified Presentation: 03/14 13:32 Chief complaint: Patient states: Abdominal pain, bloating, and cramping for 5 days. No ll1 fever. Coronavirus screen: Client denies travel out of the [place] in the last 14 days. At this time, the client does not indicate any symptoms associated with coronavirus-19. Ebola Screen: Patient denies travel to an Ebola-affected area in the 21 days before illness onset. Initial Sepsis Screen: Does the patient meet any 2 criteria? No. Patient's initial sepsis screen is negative. Does the patient have a suspected source of infection? No. Patient's initial sepsis screen is negative. Risk Assessment: Do you want to hurt yourself or someone else? Patient reports no desire to harm self or others. Onset of symptoms was March 09, 2024. 13:32 Method Of Arrival: Ambulatory ll1 13:32 Acuity: RORY 3 ll1 Triage Assessment: 13:32 General: Appears in no apparent distress. Behavior is calm, cooperative, appropriate ll1 for age. Pain: Complains of pain in abdomen Quality of pain is described as aching, crampy. GI: Reports lower abdominal pain, upper abdominal pain, bloating, cramping. : Reports pain in bilateral. Historical: - Allergies: 13:28 No Known Allergies; ll1 - Home Meds: 13:31 alprazolam 0.5 mg Oral tablet [Active]; venlafaxine 50 mg oral tablet [Active]; ll1 - PMHx: 13:31 None; ll1 - PSHx: 13:28 breast augmentation; section; Tummy tuck; ll1 - Immunization history:: Adult Immunizations up to date. - Infectious Disease History:: Denies. - Social history:: Smoking status: Reported history of juuling and/or vaping. Patient denies any tobacco usage or history of. - Family history:: not pertinent. Screenin:10 [facility] ED Fall Risk Assessment (Adult) History of falling in the last 3 months, db including since admission No falls in past 3 months (0 pts) Confusion or Disorientation No (0 pts) Intoxicated or Sedated No (0 pts) Impaired Gait No (0 pts) Mobility Assist Device Used No (0 pt) Altered Elimination No (0 pt) Score/Fall Risk Level 0 - 2 = Low Risk Oriented to surroundings, Maintained a safe environment. Abuse screen: Denies threats or abuse. Denies injuries from another. Nutritional screening: No deficits noted. Tuberculosis screening: No symptoms or risk factors identified. Assessment: 14:10 Reassessment: Patient appears in no apparent distress at this time. Patient and/or db family updated on plan of care and expected duration. Pain level reassessed. Patient is alert, oriented x 3, equal unlabored respirations, skin warm/dry/pink. General: Appears in no apparent distress. comfortable, Behavior is calm, cooperative. Neuro: Level of Consciousness is awake, alert, obeys commands, Oriented to person, place, time, situation. Respiratory: Airway is patent Respiratory effort is even, unlabored, Respiratory pattern is regular, symmetrical. GI: Abdomen is flat, non-distended, Reports lower abdominal pain, constipation, cramping. 16:30 Reassessment: Patient appears in no apparent distress at this time. Patient and/or db family updated on plan of care and expected duration. Pain level reassessed. Patient is alert, oriented x 3, equal unlabored respirations, skin warm/dry/pink. Patient states feeling better. Patient states symptoms have improved. Vital Signs: 13:32 BP 144 / 90; Pulse 88; Resp 16; Temp 97.4; Pulse Ox 98% ; Weight 81.65 kg; Height 5 ft. ll1 7 in. ; Pain 6/10; 15:08 BP 118 / 77; Pulse 83; Resp 18; Pulse Ox 99% ; db 16:30 BP 120 / 78; Pulse 84; Resp 18; Pulse Ox 99% on R/A; db 13:32 Body Mass Index 28.19 (81.65 kg, 170.18 cm) ll1 13:32 Pain Scale: Adult ll1 ED Course: 13:27 Patient arrived in ED. ll1 13:27 Arm band placed on. ll1 13:33 Triage completed. ll1 13:34 Lucho Clinton MD is Attending Physician. rt 13:46 Cris Monique, RN is Primary Nurse. db 14:01 Initial lab(s) drawn, by me, sent to lab. Inserted saline lock: 22 gauge in right db antecubital area, using aseptic technique. Blood collected. 14:10 Patient has correct armband on for positive identification. Bed in low position. Call db light in reach. Side rails up X 1. Provided Education on: DISCHARGE. Pulse ox on. NIBP on. Warm blanket given. 15:41 CT Abd/Pelvis - IV Contrast Only In Process Unspecified. EDMS 16:48 No provider procedures requiring assistance completed. IV discontinued, intact, db bleeding controlled, No redness/swelling at site. Administered Medications: 14:10 Drug: TORadol - Ketorolac IVP 15 mg IVP once Route: IVP; Site: right antecubital; db 16:49 Follow up: Response: No adverse reaction db 14:10 Drug: Dicyclomine PO 20 mg PO once Route: PO; db 16:49 Follow up: Response: No adverse reaction db Medication: 14:10 VIS not applicable for this client. db Outcome: 16:15 Discharge ordered by . rt 16:48 Discharged to home ambulatory, db 16:48 Condition: stable 16:48 Discharge instructions given to patient, Instructed on discharge instructions, follow up and referral plans. Prescriptions given X 1, 16:50 Patient left the ED. db Signatures: Dispatcher [employer] EDMS Ivonne Granado, RN RN ll1 Cris Monique, RN RN db Lucho Clinton MD MD rt
[2024-03-14 22:43] VITALS: BP 120/78; TEMP 97.4; O2SAT 99
== END 2024-03-14 16:50 | disposition home or self-care (01) ==
LOC: ER 13:25
DX: R10.9 Unspecified abdominal pain (principal)
CPT/HCPCS: 36415; 74177; 80053; 81001; 81025; 83690; 85025; 96374; 99284; Q9967

== ENCOUNTER 2024-05-02 03:59 | Emergency (ER) | payer SELFPAY ==
--- OUTSIDE RECORDS SUMMARY | 2024-05-02 04:02 | XMS REPORT | Continuity of Care Document ---
Author Name Unknown Address [address] [place] [address] [facility] thconnect Address [address] [place] [address] Care Team Providers Care Traffic Personnel Supervisor Name Role Phone PATI WILLIAMSON Primary Care Physician Unav ailable [email or web address] Attending Clinician Unavaila ble PATI WILLIAMSON Attending Clinician Unavail able [email or web address]_S Admitting Clinician Unavaila ble Payers Payer Name Policy Type Policy Number Effective Date Expirati on Date Source [facility] [id number] [facility] [id number] 2021 00:00:00 Allergies, Adverse Reactions, Alerts Allergy Name Allergy Type Status Severity Reaction(s) Onset Date Inactive Date Treating Clinician Comments Source NO KNOWN ALLERGIE S Drug Class Active [facility] Encounters Start Date/Time End Date/Time Encounter Type Admission Type Attending Clinicians Care Facility Care Department Encounter ID Source 2023-12-31 00:00:00 2023-12-31 00:00:00 Outpatient [email or web address] [email or web address] PRIV PRIV [id number] [facility] 2023-12-30 00:00:00 2023-12-30 00:00:00 Outpatient [email or web address] [email or web address] PRIV PRIV [id number] [facility] 2023-12-18 00:00:00 2023-12-18 00:00:00 Outpatient [email or web address] [email or web address]_S PRIV PRIV [id number] [facility] 2022-10-15 09:15:00 2022-10-15 09:15:00 Outpatient PATI [facility] [id number] [facility]
--- NOTE | 2024-05-02 07:17 | ER ---
Nurse's Notes [facility] [place] [place] Name: Ryann Winslow Age: 29 yrs Sex: Female : 1995 Arrival Date: 05/02/2024 Time: 03:59 Bed 3 Private MD: Diagnosis: Laceration without foreign body of scalp;Alcohol abuse with intoxication Presentation: 05/02 04:04 Chief complaint: EMS states: pt was at a constitution party drinking heavily had a syncopal episode bm8 and fell and hit the back of her causing a 1" lac. Coronavirus screen: At this time, the client does not indicate any symptoms associated with coronavirus-19. Ebola Screen: Patient negative for fever greater than or equal to 101.5 degrees Fahrenheit, and additional compatible Ebola Virus Disease symptoms Patient denies exposure to infectious person. Patient denies travel to an Ebola-affected area in the 21 days before illness onset. No symptoms or risks identified at this time. Initial Sepsis Screen: Does the patient meet any 2 criteria? No. Patient's initial sepsis screen is negative. Does the patient have a suspected source of infection? No. Patient's initial sepsis screen is negative. Risk Assessment: Do you want to hurt yourself or someone else? Patient reports no desire to harm self or others. Onset of symptoms was May 02, 2024 at 03:00. Care prior to arrival: Cervical collar in place. 04:04 Method Of Arrival: EMS: [facility] bm8 04:04 Acuity: RORY 3 bm8 Triage Assessment: 04:07 General: Appears in no apparent distress. comfortable, Behavior is cooperative, bm8 appropriate for age. Pain: Denies pain. EENT: No deficits noted. No signs and/or symptoms were reported regarding the EENT system. Neuro: Level of Consciousness is awake, obeys commands, confused, Oriented to person, place, situation. Cardiovascular: Reports syncope, Heart tones S1 S2 present Capillary refill < 3 seconds Patient's skin is warm and dry. Respiratory: Airway is patent Respiratory effort is even, unlabored, Respiratory pattern is regular, symmetrical. GI: No signs and/or symptoms were reported involving the gastrointestinal system. : No signs and/or symptoms were reported regarding the genitourinary system. Derm: Wound noted occipital area Wound is 1" lac to back left of occipital region. Musculoskeletal: No signs and/or symptoms reported regarding the musculoskeletal system. EDITOR MAGAZINE: 04:07 unknown bm8 Historical: - Allergies: 04:07 No Known Allergies; bm8 - Home Meds: 04:07 alprazolam 0.5 mg Oral tablet [Active]; Propranolol Oral [Active]; Prozac Oral bm8 [Active]; venlafaxine 50 mg Oral tablet [Active]; - PMHx: 04:07 None; bm8 - PSHx: 04:07 breast augmentation; section; Tummy tuck; bm8 - Immunization history:: Adult Immunizations unknown. - Infectious Disease History:: Denies. - Social history:: Smoking status: Reported history of juuling and/or vaping. Patient uses alcohol, Patient/guardian denies using street drugs. Screenin:17 [facility] ED Fall Risk Assessment (Adult) History of falling in the last 3 months, bm8 including since admission Yes- physiologic fall (2 pts) Confusion or Disorientation Yes (5 pts) Intoxicated or Sedated Yes (3 pts) Impaired Gait Yes (1 pt) Mobility Assist Device Used No (0 pt) Altered Elimination No (0 pt) Score/Fall Risk Level 3 or more points = High Risk Oriented to surroundings, Maintained a safe environment, Educated pt \\T\\ family on fall prevention, incl call for assistance when getting out of bed, Assessed \\T\\ reinforced patient's understanding of fall precautions, Hourly rounding (assess needs \\T\\ fall precautionary measures) done, Used ambulatory aids as needed (educated on \\T\\ assisted with), Used gait belt as appropriate Implemented a Fall Risk Plan of Care. Abuse screen: Denies threats or abuse. Nutritional screening: No deficits noted. Tuberculosis screening: No symptoms or risk factors identified. Assessment: 04:17 Reassessment: see triage assessment. bm8 06:51 Reassessment: Patient appears in no apparent distress at this time. Patient and/or bm8 family updated on plan of care and expected duration. Pain level reassessed. Patient is alert, oriented x 3, equal unlabored respirations, skin warm/dry/pink. pt has got up and left the room with her visitor. Patient denies pain at this time. Patient states symptoms have improved. Vital Signs: 04:04 BP 126 / 89; Pulse 103; Resp 19; Temp 97.8; Pulse Ox 98% ; Weight 82.55 kg; Height 5 bm8 ft. 6 in. ; Pain 0/10; 06:51 bm8 04:04 Body Mass Index 29.38 (82.55 kg, 167.64 cm) bm8 04:04 Pain Scale: Adult bm8 06:51 pt has refused to allow vital signs to be taken. bm8 [place] Coma Score: 04:17 Eye Response: spontaneous(4). Motor Response: obeys commands(6). Verbal Response: bm8 oriented(5). Total: 15. 06:00 Eye Response: spontaneous(4). Motor Response: obeys commands(6). Verbal Response: bo1 oriented(5). Total: 15. ED Course: 04:03 Patient arrived in ED. af3 04:03 Edwar Abdalla, RN is Primary Nurse. bm8 04:07 Augustine Oneil MD is Attending Physician. bo1 04:07 Triage completed. bm8 04:07 Arm band placed on right wrist. bm8 04:17 Patient has correct armband on for positive identification. Call light in reach. Side bm8 rails up X2. Adult w/ patient. Client placed on continuous cardiac and pulse oximetry monitoring. NIBP monitoring applied. Pulse ox on. NIBP on. Door closed. Noise minimized. Warm blanket given. Verbal reassurance given. Head of bed elevated. 04:17 No provider procedures requiring assistance completed. Initial lab(s) drawn, by me, bm8 sent to lab. Inserted saline lock: 22 gauge in left antecubital area, using aseptic technique. Blood collected. Flushed with 10 mL NS. 04:27 CT Head C Spine In Process Unspecified. EDMS 06:51 Provided Education on: post er care. bm8 06:51 bleeding controlled, No redness/swelling at site. pt pulled her own iv out. bleeding bm8 has stopped and pt refuses further bandages. Administered Medications: No medications were administered Medication: 06:51 VIS not applicable for this client. bm8 Outcome: 06:51 Discharged to home ambulatory, bm8 06:51 Condition: improved 06:51 Discharge instructions given to n/a pt declined education Instructed on wound care, Demonstrated understanding of instructions, follow-up care, medications, 07:16 Discharge ordered by . bo1 07:20 Patient left the ED. ko1 Signatures: Dispatcher [employer] EDMS Nima, Sammie, RN RN ko1 Augustine Oneil MD MD bo1 Edwar Abdalla RN RN bm8 Natasha Sanders [facility]
--- NOTE | 2024-05-02 07:17 | EDPHYS ---
Physician Documentation [facility] Name: Ryann Winslow Age: 29 yrs Sex: Female : 1995 Arrival Date: 05/02/2024 Time: 03:59 Bed 3 Private MD: ED Physician Augustine Oneil HPI: 05/02 04:49 This 29 yrs old Female presents to ER via EMS with complaints of Head Injury bo1 With LOC-Adult. 04:49 The patient or guardian reports injury, a laceration, 3 cm(s), swelling. The complaints bo1 affect the left occipital area. Context of injury: The problem was sustained at home, at Pt had consumed some ETOH. Onset: The symptoms/episode began/occurred acutely, just prior to arrival. Severity of symptoms: in the emergency department the symptoms Pt is AMS, intoxicated and unable to indicate Hx. Hx is by EMS and "male" ccna.. Unable to obtain HPI due to altered mental status, patient's speech is incomprehensible. 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 - Infectious Disease History:: Denies. - Social history:: Smoking status: Reported history of juuling and/or vaping. Patient uses alcohol, Patient/guardian denies using street drugs. 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 6 in. ; Pain 0/10; 06:51 bm8 04:04 Body Mass Index 29.38 (82.55 kg, 167.64 cm) bm8 04:04 Pain Scale: Adult bm8 06:51 pt has refused to allow vital signs to be taken. bm8 [place] Coma Score: 04:17 Eye Response: spontaneous(4). Motor Response: obeys commands(6). Verbal Response: bm8 oriented(5). Total: 15. 06:00 Eye Response: spontaneous(4). Motor Response: obeys commands(6). Verbal Response: bo1 oriented(5). Total: 15. Laceration: 07:23 Wound Repair of 3cm ( 1.2in ) subcutaneous laceration to scalp and left occipital area. bo1 Distal neuro/vascular/tendon intact. Anesthesia: None with 1% lidocaine. Wound prep: Simple cleansing by me. Skin closed with 3 3 mayco [place] using staple gun. Patient tolerated well. MDM: 04:07 Patient medically screened. bo1 06:00 Special discussion: Based on the patient's history, exam and DX evaluation, there is no bo1 indication for emergent intervention or inpatient [place]. It is understood by the patient/guardian that if the SXs persist or worsen they need to return immediately for re-evaluation. Significant other at bedside aware of workup and repair. Discharge instructions reviewed.. ED course: Repaired the scalp lac with three mayco. Pt is ambulatory and to/from the bathroom.. 07:17 Differential diagnosis: Laceration of scalp, Ethanol intoxication. bo1 05/02 04:08 Order name: ETOH Level; Complete Time: 07:27 bo1 05/02 04:08 Order name: CT Head C Spine bo1 Administered Medications: No medications were administered Disposition Summary: 05/02/24 07:16 Discharge Ordered Notes: Location: Home bo1 Problem: new bo1 Symptoms: have improved bo1 Condition: Stable bo1 Diagnosis - Laceration without foreign body of scalp bo1 - Alcohol abuse with intoxication bo1 Followup: bo1 - With: Private Physician - When: 1 week - Reason: Recheck today's complaints, Staple/Suture removal Discharge Instructions: - Discharge Summary Sheet bo1 - Alcohol Intoxication, [id number] bo1 - Laceration Care, Adult, [id number] bo1 Forms: - Medication Reconciliation Form bo1 - Antibiotic Education bo1 - Prescription Opioid Use bo1 - Patient Portal Instructions bo1 - Leadership Thank You Letter bo1 Signatures: Dispatcher [employer] EDMS Augustine Oneil MD MD bo1 Edwar Abdalla, RN RN bm8 Corrections: (The following items were deleted from the chart) 04:08 04:08 Head C Spine MPR Wo Con+CT.RAD.BRZ ordered. EDMS EDMS
[2024-05-02 07:27] VITALS: BP 126/89; TEMP 97.8; O2SAT 98
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
== END 2024-05-02 07:20 | disposition home or self-care (01) ==
LOC: ER 03:59
PROC: 0HQ0XZZ Repair Scalp Skin, External Approach (ICD-10-PCS; principal; 2024-05-02)
DX: S01.01XA Laceration without foreign body of scalp, initial encounter (principal); F10.129 Alcohol abuse with intoxication, unspecified; Z98.82 Breast implant status
CPT/HCPCS: 12001; 36415; 70450; 72125; 82077; 99284

== ENCOUNTER 2025-05-15 19:21 | Emergency (ER) | payer SELFPAY, OTHER ==
--- OUTSIDE RECORDS SUMMARY | 2025-05-15 19:24 | XMS REPORT | Continuity of Care Document ---
Author Name Unknown Address [address] [place] [address] [facility] [place] Address [address] [place] [address] Care Team Providers Care Health Policy Nurse Name Role Phone PATI WILLIAMSON Primary Care Physician Unav ailable [email or web address]_Kadiyala_S Attending Clinician Unavaila ble PATI WILLIAMSON Attending Clinician Unavail able [email or web address]_Kadiyala_S Admitting Clinician Unavaila ble Payers Payer Name Policy Type Policy Number Effective Date Expirati on Date Source [facility] [id number] [facility] [id number] 2021 00:00:00 Allergies, Adverse Reactions, Alerts Allergy Name Allergy Type Status Severity Reaction(s) Onset Date Inactive Date Treating Clinician Comments Source NO KNOWN ALLERGIE S Drug Class Active [facility] Encounters Start Date/Time End Date/Time Encounter Type Admission Type Attending Clinicians Care Facility Care Department Encounter ID Source 2023-12-31 00:00:00 2023-12-31 00:00:00 Outpatient GC_[email or web address] diyala_S PRIV PRIV [id number] [facility] 2023-12-30 00:00:00 2023-12-30 00:00:00 Outpatient GC_[email or web address] diyala_S PRIV PRIV [id number] [facility] 2023-12-18 00:00:00 2023-12-18 00:00:00 Outpatient [email or web address] diyala_S PRIV PRIV [id number] [facility] 2022-10-15 09:15:00 2022-10-15 09:15:00 Outpatient PATI [facility] [id number] [facility]
[2025-05-15] MEDS ORDERED: KETOROLAC 30 MG/ML INJ ONE (20:16)
[2025-05-15] MEDS ORDERED: HYDROCODONE/APAP 5/325 MG TAB ONE (20:16)
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
--- NOTE | 2025-05-15 20:27 | RAD REPORT ---
EXAM: CT CHEST, ABDOMEN AND PELVIS WITHOUT CONTRAST CLINICAL INDICATION: Chest and abdominal pain status post surgery TECHNIQUE: CT chest, abdomen and pelvis was performed, without IV contrast, as per department protoco l. Axial, sagittal and coronal reconstructions were obtained. One or more of the following dose reduction techniques were used: Automated exposure control, adjustment of the mA and/or kV according to the patient size, and/or iterative reconstruction. Unless otherwise specified, incidental findings do not require dedicated imaging follow-up. The lack of IV and oral contrast limits evaluation of the mediastinum, louise, vessels, organs and josephine l. COMPARISON: 2023 CT abdomen FINDINGS: Mildly displaced fracture involves the left humeral neck. The fracture involves the humeral head. The greater trochanter is avulsed. No dislocation. No pulmonary contusion. A mediastinal hematoma not seen. Lobulated appearance of the posterior aspect of right breast implant. No pleural effusion. No pericardial effusion. Liver, spleen, pancreas, adrenals kidneys and bladder do not demonstrate a traumatic injury. There is no evidence of diverticulitis IMPRESSION: Left humeral head fracture Possible right breast implant rupture. Nonemergent MRI recommended
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
--- NOTE | 2025-05-15 21:26 | RAD REPORT ---
Exam:Humerus Left CLINICAL HISTORY: Left arm pain FINDINGS: Mildly displaced humeral neck fracture extends into the humeral head in which the greater tubercle is avulsed. No dislocation Previously described lucency seen on shoulder x-ray within the mid humerus represents artifact. The r emainder of the left humerus unremarkable
[2025-05-15 22:59] VITALS: TEMP 98.4
[2025-05-15 23:09] VITALS: BP 115/75; O2SAT 100
== END 2025-05-15 22:00 | disposition home or self-care (01) ==
LOC: ER 19:21
DX: S42.252A Displaced fracture of greater tuberosity of left humerus, initial encounter for closed fracture (principal); V47.5XXA Car driver injured in collision with fixed or stationary object in traffic accident, initial encounter; Z98.82 Breast implant status
CPT/HCPCS: 70450; 71250; 72125; 74176; 96372; 99284